=== PATIENT | female | born 1990 | race Caucasian/White ===

== ENCOUNTER 2017-01-07 20:23 | Emergency (ER) | payer OTHER, MEDICAID ==
[~2017-01-07 20:23] MED LIST: ZITHTAB PO
[2017-01-07 20:26] VITALS: BP 135/84; PULSE 98; RESP 16; TEMP 98.6; O2SAT 100
--- NOTE | 2017-01-07 21:16 | RADRPT ---
EXAM DATE/TIME: 01/07/2017 20:37 [place] COMPARISON: No previous studies available for comparison. INDICATIONS : Fall. Rolled ankle with lateral pain. MEDICAL HISTORY : None. SURGICAL HISTORY : None. ENCOUNTER: Initial ACUITY: 1 day PAIN SCORE: 3/10 LOCATION: Right lateral ankle FINDINGS: Three views of the right ankle demonstrate no fracture or dislocation. Ankle mortise is intact. Junior Web Designer alization is within normal limits and there is no significant arthropathy. No soft tissue abnormality or radiopaque foreign body is identified. CONCLUSION: No acute abnormality is identified. Wale Waller MD on January 07, 2017 at 21:13 Board Certified Radiologist. This report was verified electronically.
--- NOTE | 2017-01-07 21:32 | PD ---
HPI Chief Complaint: Injury Time Seen by Provider: 21:23 Travel History International Travel<30 days: No Contact w/Intl Traveler<30days: No Traveled to known affect area: No History of Present Illness HPI Patient comes in complaining of right ankle pain that began around 1911 today. Patient states that she was at work when she tripped and fell twisting her right ankle causing the pain. Describes pain as achy like in nature without radiation. Patient has applied ice to this with minimal relief of symptoms. Pain is worse with walking but is able to ambulate. Patient denies hitting her or loss of consciousness. Denies any chest pain, shortness of breath, fevers, loss or change in bowel or bladder, numbness or tingling anywhere, or . PFSH Past Medical History Medical History: Denies Significant Hx Immunizations Current: Yes Tetanus Vaccination: Unknown Influenza Vaccination: No ?: Unknown Social History Alcohol Use: No Tobacco Use: No Substance Use: No Allergies-Medications (Allergen,Severity, Reaction): Coded Allergies: No Known Allergies (Unverified Adverse Reaction, Unknown, 01/07/17) Reported Meds & Prescriptions Reported Meds & Active Scripts Active Naprosyn (Naproxen) 500 Mg Tab 500 Mg PO Q12HR PRN Zithromax Z-Salo (Azithromycin) 250 Mg Dspk 250 Mg PO DIRECTED 500 MG (2 tabs) day 1, then 1 tab days 2-5. Review of Systems Except as stated in HPI: all other systems reviewed are Neg Physical Exam Narrative GENERAL: Well-developed, well nourished, in no acute distress, and non-ill appearing. SKIN: Focused skin assessment warm and dry. HEAD: Atraumatic. Normocephalic. EYES: Pupils equal and round. EOMI. No scleral icterus. No injection or drainage. ENT: No nasal bleeding or discharge. Mucous membranes pink and moist. NECK: Trachea midline. Supple. No nuclear rigidity. RESPIRATORY: No accessory muscle use. No respiratory distress. MUSCULOSKELETAL: No obvious deformities. No clubbing. No cyanosis. No edema. Full range of motion. Ankle: Neagative anterior draw and Pardo test. Negative Gabriel's sign. No laxity noted with passive inversion and eversion of BL ankles. Negative squeeze test. Pulses equal BL distal to injury. Capillary refill less than 2 seconds distal to injury and equal BL. Sensation equal BL 1st web space. FROM of toes distal to injury and equal BL. NV intact distal to injury and equal BL. Dorsal pulses equal BL. Mild soft tissue swelling noted over the lateral aspect of the right ankle is mildly tender without crepitus. NEUROLOGICAL: Awake and alert. No obvious cranial nerve deficits. Motor grossly within normal limits. Normal speech. PSYCHIATRIC: Appropriate mood and affect; insight and judgment normal. Data Data Last Documented VS Vital Signs Date Time Temp Pulse Resp B/P (MAP) Pulse Ox O2 Delivery O2 Flow Rate FiO2 01/07/17 21:55 01/07/17 20:26 98.6 98 16 100 Orders Orders Ankle, Complete ([id number]) (01/07/17 ) Ed Discharge Order (01/07/17 21:32) Splint Or Brace Apply/Monitor (01/07/17 21:32) Crutches (01/07/17 21:47) MDM Medical Decision Making Medical Screen Exam Complete: Yes Emergency Medical Condition: Yes Differential Diagnosis Fracture, sprain, contusion, other Narrative Course There is no clinical evidence for fracture. There is no clinical evidence to suspect bony injury by exam. Radiographic examination revealed no fracture seen at this time. No obvious ligamental injury or internal derangement is noted at this time. The distal extremity appears neurovascularly intact, without evidence of neurovascular injury nor compartment syndrome. Tendon exam also was intact. The effected limb was splinted. The patient was discharged on pain medication along with sprain and splint care instructions and given warnings for vascular compromise. The patient is to follow up with workben bolt's comp provider. The patient agrees with plan. Patient in no obvious distress upon re-evaluation. All pertinent Radiology result(s) discussed with patient. Patient was asked if they wanted to speak to my attending, which the patient did not wish to do at this time. Any questions/ concerns in reference to patient diagnosis/condition discussed and clarified prior to patient's discharge. Reinforced sheer importance of close follow up with patient's workman's comp provider. Instructed patient to return to ED immediately, if symptoms return/worsen. Patient showed understanding of above instructions. Further instructions and recommendations were detailed in discharge paperwork. Patient ambulated without difficulty out of ED at discharge with crutches. Diagnosis Primary Impression: Right ankle sprain Qualified Codes: S93.401A - Sprain of unspecified ligament of right ankle, initial encounter Patient Instructions: Ankle Exercises (GEN), Ankle Sprain (DC), Ankle Stirrup Splint (ED), General Instructions Additional Instructions: Follow-up with your workmen's comp provider tomorrow. Take all medication as prescribed. Wear Sree wrap and stirrup splint as needed for comfort. Return to the emergency department if symptoms get worse. Med/Other Pt SpecificInfo: Prescription(s) given Scripts Naproxen (Naprosyn) 500 Mg Tab 500 MG PO Q12HR Y for PAIN SCALE 1 TO 10, #14 TAB 0 Refills Prov: Ki Dutton MD 01/07/17 Disposition: 01 DISCHARGE HOME Condition: Stable Francesco Stephenson Jan 07, 2017 21:32
[2017-01-07] MEDS ORDERED: NAPR500 PO (21:33)
== END 2017-01-07 21:57 | disposition home or self-care (01) ==
LOC: NEPK 20:23
DX: S93.401A Sprain of unspecified ligament of right ankle, initial encounter (principal); W01.0XXA Fall on same level from slipping, tripping and stumbling without subsequent striking against object, initial encounter
CPT/HCPCS: 73610; 99283; E0113; L1906